=== PATIENT | male | born 1960 | race Caucasian/White ===

== ENCOUNTER 2025-01-16 22:29 | Emergency (ER) | payer MEDICARE, OTHER ==
[2025-01-17] MEDS: Ketorolac 30 MG/ML SDV IM ONE (00:28)
[2025-01-17] MEDS: Lidocaine 1% with EPINEPHrine 1:100,000 20 ML MDV ONE (06:12)
[2025-01-17] MEDS: Lidocaine 1% with EPINEPHrine 1:100,000 20 ML MDV INJECT ONE (06:12)
[2025-01-17] MEDS: Diphtheria,Pertussis(Acell),Tetanus Vaccine 0.5 ML Syringe IM ONE (06:45)
== END 2025-01-17 06:50 | disposition home or self-care (01) ==
LOC: JD.ED 22:29
DX: S61.210A Laceration without foreign body of right index finger without damage to nail, initial encounter (principal); I10 Essential (primary) hypertension; Z88.0 Allergy status to penicillin; Z79.899 Other long term (current) drug therapy; W45.8XXA Other foreign body or object entering through skin, initial encounter; Z23 Encounter for immunization
CPT/HCPCS: 12002; 73140; 90471; 90715; 96372; 99283; A9270; J1885; J2003